=== PATIENT | female | born 1950 | race Caucasian/White ===

== ENCOUNTER 2019-11-27 13:00 | Inpatient (IN) ==
[2019-11-27] MEDS: ZOFRAN IV PRN ×2 (15:38→21:37)
[2019-11-27] MEDS: PROTONIX IV SCH (15:38)
[2019-11-27] MEDS: TORADOL IV PRN ×2 (15:38→21:37)
[2019-11-27] MEDS: SODIUM CHLORIDE 0.9% INJ SCH (15:38)
[2019-11-27] MEDS: NS 1,000 ML IV SCH (15:38)
[2019-11-27 16:08] LABS: BASO# 0.02 X1000 (0.0-0.2); BASO% 0.2 % (0.0-0.8); EOS# 0.02 X1000 (0.0-0.7); EOS% 0.2 % (0.0-10.0); HEMATOCRIT 46.7 % (37.0-47.0); HEMOGLOBIN 15.7 g/dL (12.0-16.0); IMM GRAN# 0.03 X1000 (0.0-0.04); IMM GRAN% 0.3 % (0.0-0.5); LYMPH# 1.53 X1000 (1.2-3.4); LYMPH% 17.2 % (20.5-51.1); MCH 28.2 PG (27-31); MCHC 33.6 g/dL (33-37); MCV 83.8 FL (81-99); MONO# 0.68 X1000 (0.11-0.59); MONO% 7.6 % (1.7-9.3); MPV 10.8 FL (7.4-10.4); NEUT# 6.62 X1000 (1.4-6.5); NEUT% 74.5 % (42.2-75.2); PLT 187 X1000 (130-400); RBC 5.57 XMIL (4.2-5.4); RDW 14.5 % (11.5-14.5)
[2019-11-27 16:25] LABS: AGAP 19; ALB/GLOB RATIO 1.5; ALBUMIN 4.2 g/dL (3.5-5.0); ALKALINE PHOSPHATASE 113 U/L (32-104); AMYLASE 32 U/L (20-200); BUN 21 mg/dL (8-22); CALCIUM 9.2 mg/dL (8.8-10.2); CHLORIDE 93 mmol/L (98-107); COSMO 275; CREATININE 0.8 mg/dL (0.5-0.9); ESTIMATED GFR > 60; GLUCOSE 103 mg/dL (70-104); GOT 25 U/L (10-30); GPT 33 U/L (10-36); POTASSIUM 4.1 mmol/L (3.5-5.1); SODIUM 136 mmol/L (136-145); TCO2 24 mmol/L (25-35); TOTAL BILIRUBIN 0.94 mg/dL (0.20-1.00)
--- NOTE | 2019-11-27 16:43 | HISTORY AND PHYSICAL ---
CHIEF COMPLAINT: Abdominal pain, nausea, and vomiting. HISTORY OF PRESENT ILLNESS: She is a 69-year-old white female who came to our clinic with a 5-day history of nausea, vomiting, abdominal pain, and diarrhea. Initially, diarrhea started, and that has been stopped 3 days ago after Imodium. Since then, she has gradual worsening of the symptoms, and not able to eat, nausea. No fever. She is not even passing the gas. Last bowel movement 3 days ago. Upon workup in the clinic, the patient has bowel obstruction. Normal chest. No free air in the diaphragm. There is a distended small bowel. No gas in the rectum. The patient was admitted to the hospital for bowel obstruction. PAST MEDICAL HISTORY: 1. Acid reflux disease. 2. Allergies. 3. Depression. PAST SURGICAL HISTORY: Cholecystectomy, appendectomy, and hysterectomy. ALLERGIES: Reported to penicillin, Augmentin, and bee stings. SOCIAL HISTORY: She is single, self-employed, , 2 children. The daughter used to work in [employer]. Lives in [place]. No smoking. No alcohol. FAMILY HISTORY: Mom of GI malignancy at the age of 36. Father history was not known. The patient was not up-to-date on flu vaccine. Colonoscopy 3 to [address] Barnard. Mammography was 2019. REVIEW OF SYSTEMS: HEENT: Allergies, some cough and ears are stopped up. No sore throat. No vision problem. No headache. Neck: No neck pain. No goiter. No lymphadenopathy. Cardiopulmonary: No chest pain, shortness of breath, PND, orthopnea. GI: No nausea, vomiting, abdominal distention, or obstipation. No bleeding per rectum. : No history of hesitancy, frequency, dysuria. No swelling of legs. No joint pain. Neurologic: No focal symptoms or weakness. PHYSICAL EXAMINATION: VITAL SIGNS: Temperature is 97.6 degrees, pulse 70, blood pressure 125/68, and 5 feet 3 inches, and 140 pounds. HEENT: Atraumatic, normocephalic. Pupils equal, and reactive to light. TMs are normal. Nose and throat within normal limits. Dry mucous membranes. NECK: Supple. No lymphadenopathy. CHEST: Bilateral air entry. HEART: Sounds are regular. ABDOMEN: Belly is soft. Distended. Hypoactive bowel sounds. RECTAL: Deferred. EXTREMITIES: No peripheral edema or cyanosis. NEUROLOGIC: No obvious neurological deficits. INVESTIGATIONS: CBC is normal. SMA 12. Amylase pending. Flat/Upright abdomen with chest. Bowel obstruction. ASSESSMENT AND PLAN: 1. A 69-year-old white female admitted to the hospital with bowel obstruction and conservative management. Follow up on the pending labs and IV fluids. 2. Dulcolax and Zofran for nausea, IV Protonix. 3. Toradol for pain. 4. Based on the CT, further recommendations will be followed. cc: Cristhian Rudd MD MTDD
[2019-11-27 19:07] LABS: URINE SOURCE CLEAN CATCH
[2019-11-27 19:41] LABS: BILIRUBIN URINE SMALL (NEGATIVE); BLOOD URINE TRACE (NEGATIVE); COLOR YELLOW; GLUCOSE URINE NEGATIVE (NEGATIVE); KETONE URINE 60 mg/dL (NEGATIVE); LEUKOCYTES URINE LARGE (NEGATIVE); NITRITE URINE NEGATIVE (NEGATIVE); PROTEIN URINE 50 mg/dL (NEGATIVE); SP GRAVITY URINE 1.035; TURBIDITY URINE HAZY (CLEAR); UR EPITHELIAL CELLS <10 /HPF (<10); URINE BACTERIA 2+ /HPF; URINE RBC <10 /HPF (<10); URINE WBC TNTC /HPF (<10); UROBILINOGEN URINE 3 mg/dL (NORMAL)
[2019-11-27 19:54] LABS: URINE CASTS NONE SEEN; URINE YEAST NONE SEEN
[2019-11-27 19:56] LABS: URINE CRYSTALS NONE SEEN
--- NOTE | 2019-11-27 20:17 | Diag Imaging Result Doc PS360 ---
EXAM: CT ABD/PELVIS W/IV CONT ONLY 11/27/2019 HISTORY: Abdominal pain TECHNIQUE: This exam was performed using automated exposure control, adjustment of mA or kV according to patient size, and/or use of iterative reconstruction technique. COMMENT: There are no previous studies available for comparison. There is linear opacity in the inferior lingula and costophrenic sulcus of the left lower lobe laterally which may be due to atelectasis or fibrosis. There is a nodule present in the left lower lobe laterally measuring over 7 mm. This is not clearly calcified. The liver is hypodense suggesting fatty change. The aorta is partially calcified but not distended and the mesenteric and renal arteries are patent. There has been cholecystectomy. The stomach is markedly distended with fluid. There is fluid dilatation of the small bowel. The colon is not distended. There is a small amount of free fluid present in the right paracolic gutter. The pancreas adrenal glands and spleen are unremarkable. The kidneys are without evidence of hydronephrosis or mass. There are some prominent mesenteric nodes. Pelvis: There is an apparent mesh in the lower abdomen and upper pelvis anteriorly on the right. There has been previous appendectomy. There has been hysterectomy. The distal small bowel is nondistended. The transitional point is apparently in the posterior pelvis adjacent to the rectum. The urinary bladder is not distended. There is a small amount of free fluid. There is no evidence of acute bony abnormality. IMPRESSION: Small bowel obstruction due to adhesion or stricture in the pelvis. Left lower lobe pulmonary nodule. Other nonacute findings as described above. Electronically signed by Bin Macedo 11/27/2019 8:15 PM
[2019-11-27] MEDS: DULCOLAX PO SCH (21:36)
[2019-11-28] MEDS: NS 1,000 ML IV SCH ×2 (03:37→22:24)
[2019-11-28] MEDS: TORADOL IV PRN ×2 (07:26→17:56)
[2019-11-28] MEDS: ZOFRAN IV PRN ×2 (11:22→21:13)
[2019-11-28] MEDS: LEVAQUIN 750 MG/D5W 750 MG/150 ML IVPB IV SCH (12:56)
--- NOTE | 2019-11-28 13:52 | GENERAL SURGERY CONSULTATION ---
DATE: 11/28/2019 SURGEON CONSULTED: Dr. Chao Pineda. REQUESTING PHYSICIAN: Dr. Rudd. REASON FOR CONSULTATION: Small bowel obstruction. HISTORY OF PRESENT ILLNESS: This is a 69-year-old female who has a 5-day history of abdominal pain diffusely, distention with nausea and vomiting and a brief episode of diarrhea. However, she has not had any passage of gas or bowel movements in over 24 hours. Her pain has not had any particular exacerbating factors but she has felt better overnight since she was admitted and given pain medicine and had a large emesis. The emesis was after the CT scan. She has never had any previous episodes like this in the past. PAST MEDICAL HISTORY: Acid reflux disease, allergies, depression. PAST SURGICAL HISTORY: Laparoscopic cholecystectomy, open appendectomy, hysterectomy, incisional hernia repair. ALLERGIES: Penicillin, Augmentin, and bee stings. SOCIAL HISTORY: Negative for tobacco. She has a glass of wine occasionally. She has 2 children. She is single. No illicit drug use. FAMILY HISTORY: Her mother of what sounds like esophageal or gastric cancer. HOME MEDICATIONS: Zoloft, Singulair, and cetirizine. REVIEW OF SYSTEMS: Ten systems reviewed and negative except as noted above. PHYSICAL EXAMINATION: Vital Signs: Temperature 98.3 degrees, pulse 81, respirations 16, blood pressure 127/68, O2 saturation 97%. General: Well-developed, well-nourished female who looks her stated age in no acute distress. HEENT: Normocephalic, atraumatic. Extraocular muscles intact. Pupils equal, round, reactive to light. Sclerae anicteric. Moist mucous membranes. Neck: Supple. No thyromegaly. CV: Regular rate and rhythm. Respiratory: Clear, bilateral breath sounds. No work of breathing. Gastrointestinal: Soft, nondistended. Hypoactive bowel sounds. No organomegaly or mass. No hernias. Mild tenderness throughout. No rebound or guarding. Extremities: No clubbing, cyanosis, or edema. Skin: Warm and dry. No rash. Musculoskeletal: Moves all extremities equally and well. LABORATORY: CBC and complete metabolic profile reviewed and unremarkable. Urinalysis was notable for large leukocytes, too numerous to count white blood cells, however negative nitrite. IMAGING: CT of the abdomen, pelvis shows small bowel obstruction likely due to adhesion or stricture in the pelvis and a tiny left lower lobe nodule. There is no free air. There is a small amount of free fluid in the right pericolic gutter. ASSESSMENT AND PLAN: A 69-year-old female with small-bowel obstruction likely secondary to adhesions. She is symptomatically better this morning. We will keep her n.p.o. and get a small bowel followthrough and follow her progress. If she fails to improve in the next 24-48 hours she will need exploratory laparotomy. cc: MD Cristhian Moore MD
--- NOTE | 2019-11-28 14:04 | PROGRESS NOTE ---
DATE: 11/28/2019 SUBJECTIVE: Ms. Tidwell was earlier seen by Dr. Pineda. She still has some abdominal pain and distention, has not moved bowels and has not been passing any gas. Her vital signs are stable. Bowel sounds are present. She has a nodule in the left lower lobe of the lung. She has urinary tract infection. Urine culture is pending. We started IV Levaquin today. Her white count was 8.9, hemoglobin 15.7, hematocrit 46.7. Overall condition is otherwise stable. We will continue to watch her closely. cc: MD Cristhian Márquez MD
[2019-11-28] MEDS: PROTONIX IV SCH (17:56)
[2019-11-28] MEDS: SODIUM CHLORIDE 0.9% INJ SCH (17:57)
--- NOTE | 2019-11-28 20:34 | Diag Imaging Result Doc PS360 ---
EXAM: SMALL BOWEL SERIES ONLY 11/28/2019 HISTORY: sbo TECHNIQUE: Small bowel series, eight images COMMENT: Following administration of oral contrast, there is marked dilatation of the small bowel which is demonstrated into the pelvis on the eight hour image. The distal ileum is not demonstrated at this point and a further delayed images to be obtained in the morning. IMPRESSION: Small bowel obstruction with markedly delayed intestinal transit time. Electronically signed by Bin Macedo 11/28/2019 8:31 PM
[2019-11-28] MEDS: DULCOLAX PO SCH (21:13)
[2019-11-29] MEDS: TORADOL IV PRN (01:48)
[2019-11-29] MEDS: ZOFRAN IV PRN ×2 (01:49→19:52)
--- NOTE | 2019-11-29 07:23 | Diag Imaging Result Doc PS360 ---
EXAM: KUB ABDOMEN 11/29/2019 HISTORY: complete SBO TECHNIQUE: KUB COMMENT: There continues to be dilatation of the visualized small bowel which contains dilute contrast. There is still no opacification of the colon at 20 hours after the beginning of the small bowel series yesterday. There may be some progress however since the last image on 11/28/2019 which was performed at eight hours at 2006. IMPRESSION: Small bowel obstruction. Electronically signed by Bin Macedo 11/29/2019 7:21 AM
--- NOTE | 2019-11-29 10:19 | GENERAL SURGERY PROGRESS NOTE ---
DATE: 11/29/2019 SUBJECTIVE: She still denies any significant abdominal pain. It is a little sore. She denies nausea or vomiting. She still has not had any flatus or bowel movement. OBJECTIVE: Vital signs: She is afebrile. Vital signs are stable. General: She is awake, alert, and oriented x3. She is in no acute distress. GI: Soft. Mildly distended. Hypoactive bowel sounds. Minimally tender. LABORATORY: None today. IMAGING STUDIES: Her abdominal x-ray and small bowel follow-through yesterday continue to show small bowel obstruction. There is no progression of the contrast into the colon. The small bowel remains dilated. ASSESSMENT AND PLAN: This is a 69-year-old female with small-bowel obstruction. This has not resolved. Symptomatically she has improved. We will give her a few more hours to see if she has any bowel function or passage of contrast into the colon on x-ray. If by mid day, this has not occurred, we are planning exploratory laparotomy today. I have discussed this with her to include the risks and benefits such as bleeding, infection, injury to the bowel, incisional hernia, and other imponderables. She understands and agrees to proceed if necessary. cc: MD Cristhian Moore MD
--- NOTE | 2019-11-29 11:12 | Diag Imaging Result Doc PS360 ---
EXAM: KUB ABDOMEN 11/29/2019 HISTORY: sbo TECHNIQUE: KUB COMMENT: The current examination is 24 hours out from the administration of oral contrast. There is still no opacification of the colon. The small bowel is still considerably distended. IMPRESSION: Small bowel obstruction. Electronically signed by Bin Macedo 11/29/2019 11:10 AM
[2019-11-29] MEDS: LEVAQUIN 750 MG/D5W 750 MG/150 ML IVPB IV SCH (12:42)
[2019-11-29] MEDS: NS 1,000 ML IV SCH (12:42)
--- NOTE | 2019-11-29 13:04 | PROGRESS NOTE ---
DATE: 11/29/2019 Ms. Tidwell is in about the same general condition. She has not moved her bowels or has not passed any gas. She does not have any abdominal pain. Her lungs are clear. Bowel sounds are less prominent today. There is not much abdominal distention. Flat plate abdomen reveals the presence of small-bowel obstruction. Her urine culture grew diphtheroids. Her general condition is stable. She was seen by Dr. Pineda earlier, and he wanted to watch her for a few more hours to see if there was any progress made. So far, she has not moved her bowels and not passed any gas. cc: MD Cristhian Márquez MD
[2019-11-29] MEDS ORDERED: FENTANYL ONE (13:18)
[2019-11-29] MEDS ORDERED: VERSED ONE (13:18)
[2019-11-29] MEDS ORDERED: DIPRIVAN 1% ONE ×2 (13:18→14:04)
[2019-11-29] MEDS ORDERED: LR 1,000 ML ONE (13:29)
[2019-11-29] MEDS ORDERED: SENSORCAINE 0.5%-EPI 1:200,000 ONE (13:29)
[2019-11-29] MEDS ORDERED: NEOSTIGMINE ONE (14:19)
[2019-11-29] MEDS ORDERED: ROBINUL ONE (14:19)
[2019-11-29 14:37] LABS: URINE SOURCE CATH
[2019-11-29 14:45] LABS: BILIRUBIN URINE SMALL (NEGATIVE); BLOOD URINE NEGATIVE (NEGATIVE); COLOR YELLOW; GLUCOSE URINE NEGATIVE (NEGATIVE); KETONE URINE 150 mg/dL (NEGATIVE); LEUKOCYTES URINE NEGATIVE (NEGATIVE); NITRITE URINE NEGATIVE (NEGATIVE); PROTEIN URINE 50 mg/dL (NEGATIVE); SP GRAVITY URINE 1.042; TURBIDITY URINE CLEAR (CLEAR); UROBILINOGEN URINE 3 mg/dL (NORMAL)
[2019-11-29 14:47] LABS: UR EPITHELIAL CELLS >10 /HPF (<10); URINE BACTERIA NEGATIVE /HPF; URINE RBC <10 /HPF (<10); URINE WBC <10 /HPF (<10)
--- NOTE | 2019-11-29 15:04 | OPERATIVE NOTE ---
PROCEDURE DATE: 11/29/2019 PREOPERATIVE DIAGNOSIS: Small-bowel obstruction. POSTOPERATIVE DIAGNOSIS: Small-bowel obstruction. PROCEDURE PERFORMED: Diagnostic laparoscopy with lysis of adhesions. SURGEON: Chao Pineda M.D. ANESTHESIA: General. BLOOD LOSS: 3 mL. COMPLICATIONS: None apparent. SPECIMENS: None. FINDINGS: There were several adhesions in the pelvis causing obstruction of the small bowel. TECHNIQUE: She was brought to the operating room and placed supine on the table. General anesthesia was induced. A Park catheter was placed, as well as an NG tube. She was prepped and draped in the usual sterile fashion. Then, 0.25% Marcaine with epinephrine was used to anesthetize our incisions. An 11 mm incision was made above the umbilicus. The fascia was exposed and incised sharply. Entry into the peritoneal cavity was obtained under direct vision with the Nutrino device. Pneumoperitoneum was established. The camera was inserted. There was no evidence of injury to underlying structures. Two 5 mm incision ports were placed under direct vision in the left lower and mid abdomen. Through these incisions, I was able to take down adhesions of the omentum to the anterior abdominal wall, and then using padded graspers, I began mobilizing the small bowel out of the pelvis, and identified two adhesive areas that were causing obstruction. These adhesions were lysed with scissors. Once this was accomplished, I then ran the small bowel from the terminal ileum to the ligament of Treitz without any evidence of any further lesions. The bowel appeared to be viable without any significant ischemia. We then desufflated the abdomen, and removed the ports. The umbilical fascia was closed with a figure-of- eight 0 Vicryl. The skin was closed with 4-0 subcuticular Biosyn and Steri-Strips. There were no apparent complications. She was awakened in stable condition, and transferred to the recovery room. cc: MD Cristhian Moore MD
[2019-11-29] MEDS ORDERED: MORPHINE ONE (15:31)
[2019-11-29] MEDS: PROTONIX IV SCH (17:37)
[2019-11-29] MEDS: MORPHINE IV PRN (19:52)
[2019-11-30] MEDS: MORPHINE IV PRN ×4 (04:15→14:19)
[2019-11-30] MEDS: ZOFRAN IV PRN ×5 (04:15→18:24)
[2019-11-30] MEDS: NS 1,000 ML IV SCH ×3 (04:16→14:17)
[2019-11-30 07:33] LABS: BASO# 0.01 X1000 (0.0-0.2); BASO% 0.2 % (0.0-0.8); EOS# 0.03 X1000 (0.0-0.7); EOS% 0.7 % (0.0-10.0); HEMATOCRIT 38.4 % (37.0-47.0); HEMOGLOBIN 12.9 g/dL (12.0-16.0); LYMPH# 1.06 X1000 (1.2-3.4); LYMPH% 24.9 % (20.5-51.1); MCH 28.9 PG (27-31); MCHC 33.6 g/dL (33-37); MCV 85.9 FL (81-99); MONO# 0.46 X1000 (0.11-0.59); MONO% 10.8 % (1.7-9.3); MPV 10.4 FL (7.4-10.4); NEUT% 63.4 % (42.2-75.2); PLT 149 X1000 (130-400); RBC 4.47 XMIL (4.2-5.4); RDW 14.2 % (11.5-14.5); WBC 4.26 X1000 (4.8-10.8)
[2019-11-30 08:13] LABS: AGAP 15; BUN 17 mg/dL (8-22); CHLORIDE 110 mmol/L (98-107); COSMO 289; CREATININE 0.5 mg/dL (0.5-0.9); ESTIMATED GFR > 60; GLUCOSE 80 mg/dL (70-104); POTASSIUM 3.6 mmol/L (3.5-5.1); SODIUM 145 mmol/L (136-145); TCO2 20 mmol/L (25-35)
[2019-11-30] MEDS: SODIUM CHLORIDE 0.9% INJ SCH (14:18)
[2019-11-30] MEDS: PROTONIX IV SCH (14:18)
[2019-11-30] MEDS: LEVAQUIN 750 MG/D5W 750 MG/150 ML IVPB IV SCH (14:18)
[2019-11-30] MEDS: BENADRYL IV PRN (17:50)
[2019-12-01] MEDS: BENADRYL IV PRN (00:16)
[2019-12-01] MEDS: MORPHINE IV PRN ×3 (02:21→18:30)
--- NOTE | 2019-12-01 04:33 | PROGRESS NOTE ---
DATE: 11/30/2019 SUBJECTIVE: Interval history was reviewed. Appreciated Dr. Chao Pineda. The patient had a laparoscopic exam with lysis of adhesions. NG tube Park was placed. The patient is not passing gas yet. She is a little bit uncomfortable with NG tube. For allergies, IV Benadryl was given. PHYSICAL EXAMINATION: Vital Signs: Temperature 97.9 degrees and pulse 64. Vitals are stable. HEENT: Exam has NG tube. Chest: Clear. Heart: Sounds are regular. Abdomen: Belly is soft. Hyperactive bowel sounds. No neurological deficits. INVESTIGATIONS: CBC: White cell count 4.2, hematocrit 38, and platelets 149,000. Sodium 145, potassium 3.6, chloride 110, BUN 17, and creatinine 0.5. Urine culture showed diphtheroids. ASSESSMENT AND PLAN: 1. Small bowel obstruction due to medications. 2. Allergic rhinitis. 3. Diphtheroid UTI. PLAN OF CARE: 1. NG tube with low wall suction. 2. Continue IV fluids and Benadryl for allergies. 3. Continue IV Levaquin. 4. Gastrointestinal prophylaxis with IV Protonix and antithrombotic stockings. 5. Once she has good bowel sounds and passing gas, we will consider discontinuing Park and NG tube. 6. We will check the abdomen flat/upright x-ray in the morning. LEVEL OF DOCUMENTATION: 25 minutes. cc: Cristhian Rudd MD MTDD
[2019-12-01] MEDS: ZOFRAN IV PRN ×3 (04:59→18:29)
[2019-12-01] MEDS: NS 1,000 ML IV SCH ×2 (05:33→06:38)
--- NOTE | 2019-12-01 09:07 | Diag Imaging Result Doc PS360 ---
EXAM: ABDOMEN FLAT/UPRIGHT INDICATION: pain TECHNIQUE: 2 views COMPARISON: 11/29/2019 FINDINGS: There has been marked improvement of the small bowel distention seen on the previous study. There is now only mild gaseous distention of a few loops of small bowel. The contrast seen in the small bowel on the previous study is now all within the colon. The colon is nondistended. No large volume free abdominal gas is identified. An NG tube is identified projecting below the diaphragm. IMPRESSION: Marked improvement of small bowel distention. Electronically signed by Tomi Phelps 12/01/2019 9:05 AM
[2019-12-01] MEDS: LEVAQUIN 750 MG/D5W 750 MG/150 ML IVPB IV SCH (11:42)
--- NOTE | 2019-12-01 15:38 | GENERAL SURGERY PROGRESS NOTE ---
DATE: 11/30/2019 SUBJECTIVE: The patient reports soreness in her abdomen, but feels better overall. No flatus yet. OBJECTIVE: Vital Signs: She is afebrile. Vital signs are stable. Cardiovascular: Regular rate and rhythm. Respiratory: Clear breath sounds bilaterally. Gastrointestinal: Abdomen soft, appropriately tender. Incisional dressings clean and dry. General: She is awake, alert, oriented x3. LABORATORY: None today. ASSESSMENT AND PLAN: A 69-year-old female status post diagnostic laparoscopy with lysis of adhesions for bowel obstruction. We will continue the NG tube to suction and the Park catheter for volume monitoring. She is NPO. cc: MD Cristhian Moore MD
[2019-12-01] MEDS: PROTONIX IV SCH (15:44)
--- NOTE | 2019-12-01 22:03 | GENERAL SURGERY PROGRESS NOTE ---
DATE: 12/01/2019 SUBJECTIVE: The patient feels better. She is out of bed now. She denies nausea, vomiting. No flatus. No severe pain. OBJECTIVE: Vital signs: She is afebrile. Vital signs are stable. General: She is awake, alert, oriented x3. No acute distress. NG tube less than 500 mL today, about 1200 mL yesterday. GI: Soft. Hypoactive bowel sounds. Incision is clean, dry, and intact. Nondistended. Appropriately tender. IMAGING: Abdominal x-ray today shows significant improvement in small bowel distention. There is contrast in the colon now. ASSESSMENT AND PLAN: A 69-year-old female status post laparoscopic lysis of adhesions for small bowel obstruction. She is improving. We will clamp her nasogastric tube and remove it tonight if the residual is low. Can keep her n.p.o. otherwise though for now. cc: MD Cristhian Moore MD
--- NOTE | 2019-12-01 23:58 | PROGRESS NOTE ---
DATE: 12/01/2019 SUBJECTIVE: The patient is still not passing gas. Bowel sounds slightly improved. No other complaints. PHYSICAL EXAMINATION: Vital signs: Temperature is 98.6 degrees, pulse is 70. Vitals are stable. HEENT: Within normal limits. NG tube was placed. Chest: Clear. Heart: Sounds are regular. Abdomen: Belly is soft. Bowel sounds 2+. Neurologic: No neurological deficits. INVESTIGATIONS: None reported. KUB showed some improvement of gaseous distention. ASSESSMENT AND PLAN: 1. Small-bowel obstruction, postop day 2, status post lysis of adhesions. 2. Discontinue Park. 3. IV fluids. Continue IV antibiotics with localized redness around the laparoscopic site, around the umbilicus. 4. Gastrointestinal prophylaxis with IV Protonix and continue to monitor. LEVEL OF DOCUMENTATION: Was 25 minutes. cc: Cristhian Rudd MD
[2019-12-02] MEDS: ZOFRAN IV PRN ×3 (00:02→22:10)
[2019-12-02] MEDS: NS 1,000 ML IV SCH ×2 (06:01→12:20)
[2019-12-02] MEDS: LEVAQUIN 750 MG/D5W 750 MG/150 ML IVPB IV SCH (12:20)
[2019-12-02] MEDS: PROTONIX IV SCH (14:08)
[2019-12-02] MEDS: SODIUM CHLORIDE 0.9% INJ SCH (14:08)
[2019-12-02] MEDS: D5 1/2 NS + KCL 20 MEQ 1,000 ML IV SCH (14:08)
[2019-12-02] MEDS: BENADRYL IV PRN ×2 (14:23→22:10)
--- NOTE | 2019-12-02 19:15 | GENERAL SURGERY PROGRESS NOTE ---
DATE: 12/02/2019 SUBJECTIVE: The patient is feeling better. She has passed some gas. No nausea or vomiting. Her residual last night was 220 mL, so she still has an NG tube. OBJECTIVE: Vital signs: She is afebrile. Vital signs are stable. General: She is awake, alert, oriented x3. No acute distress. CV: Regular rate and rhythm. Respiratory: Bilateral equal breath sounds. Gastrointestinal: Soft, nondistended, appropriately tender. Incisional dressings clean and dry. She does have a few bowel sounds today. NG tube output recorded as 1050 mL yesterday. ASSESSMENT AND PLAN: A 69-year-old female status post diagnostic laparoscopy with lysis of adhesions. She is starting to improve. I have encouraged more time out of bed. We will do a nasogastric tube clamp trial again. She is getting close to having it removed. cc: MD Cristhian Moore MD
[2019-12-02] MEDS: TORADOL IV PRN (22:10)
--- NOTE | 2019-12-03 01:32 | PROGRESS NOTE ---
DATE: 12/02/2019 SUBJECTIVE: The patient is anxious, not able to pass significant gas. NG tube was taken out. Residual low. OBJECTIVE: Vital signs: Temperature is 97 degrees, pulse is 63. Vitals are stable. NG tube was taken out. Chest: Clear. Heart: Sounds are regular. Abdomen: Soft. Bowel sounds are hypoactive. INVESTIGATIONS: None. ASSESSMENT AND PLAN: 1. Small-bowel obstruction, postop arthroscopy with lysis of adhesions. 2. Discontinue Park. Discontinue nasogastric tube. 3. IV fluids. Discontinue morphine. Change to the Toradol. 4. Continue increase the ambulation. 5. Mild cellulitis over the umbilicus is improving on Levaquin. We will check the flat and upright of the abdomen and chest in the morning. Will follow up. LEVEL OF DOCUMENTATION: Was 25 minutes. cc: Cristhian Rudd MD MTDD
[2019-12-03] MEDS: D5 1/2 NS + KCL 20 MEQ 1,000 ML IV SCH ×2 (03:13→22:00)
[2019-12-03] MEDS: TORADOL IV PRN ×3 (03:13→21:52)
[2019-12-03] MEDS: ZOFRAN IV PRN ×3 (03:13→21:52)
[2019-12-03] MEDS: BENADRYL IV PRN ×3 (06:15→21:52)
--- NOTE | 2019-12-03 08:02 | Diag Imaging Result Doc PS360 ---
EXAM: ABDOMEN FLAT/UPRIGHT HISTORY: pain TECHNIQUE: Two views COMPARISON: None. FINDINGS: No free air beneath the diaphragm. The gallbladder has been removed. There is contrast within a nondistended colon. The colonic diverticula. There continue to be air distended loops of small bowel with air-fluid levels. Small bowel loops measure over 4 cm in diameter. IMPRESSION: Persistent, at least partial, small bowel obstruction. Electronically signed by Shamir Cormier 12/03/2019 7:59 AM
[2019-12-03] MEDS: LEVAQUIN 750 MG/D5W 750 MG/150 ML IVPB IV SCH (11:42)
[2019-12-03] MEDS: PROTONIX IV SCH (14:21)
[2019-12-03] MEDS: SODIUM CHLORIDE 0.9% INJ SCH (14:21)
--- NOTE | 2019-12-03 22:25 | GENERAL SURGERY PROGRESS NOTE ---
DATE: 12/03/2019 SUBJECTIVE: The patient overall feels better. No severe pain. She has had a couple episodes of emesis, but she thinks it is more due to postnasal drip. She has tolerated some liquids today. She has passed multiple episodes of flatus and a small bowel movement. OBJECTIVE: She is afebrile. Vital signs are stable.General: She is awake, alert, no acute distress. GI: Soft nondistended. Minimally tender. Bowel sounds are quiet. LABORATORY: White cell count 4, hemoglobin 12.9. Electrolytes reviewed and unremarkable. ASSESSMENT AND PLAN: A 69-year-old female status post laparoscopic lysis of adhesions for small bowel obstruction. She is slowly recovering. I have encouraged more time out of bed. We will keep her on a liquid diet and KVO her IV. cc: MD Cristhian Moore MD
--- NOTE | 2019-12-04 00:27 | PROGRESS NOTE ---
DATE: 12/03/2019 SUBJECTIVE: The patient had one episode of vomiting, passing gas a little bit Complains of allergies. PHYSICAL EXAMINATION: Temperature is 97 degrees. Vitals are stable. HEENT: Within normal limits. Neck: Supple. Chest: Clear to auscultation. Heart sounds are regular. Belly is soft, nontender. Good bowel sounds. No neurological deficits. ASSESSMENT: 1. Small bowel obstruction status post laparoscopic, lysis of adhesions. 2. Continue showing some ileus and NG tube is out, on IV fluids and Toradol. PLAN: We will repeat the x-rays in the morning. Continue on IV antibiotics and also GI prophylaxis with Protonix and Zofran for nausea. If she is tolerating the diet very well and without any nausea, based on x-ray, we will discharge in the morning. Will follow up. Continue on incentive spirometry. LEVEL OF DOCUMENTATION: 25 minutes. cc: Cristhian Rudd MD MTDD
--- NOTE | 2019-12-04 11:21 | Diag Imaging Result Doc PS360 ---
EXAM: ABDOMEN FLAT/UPRIGHT 12/04/2019 HISTORY: ileus TECHNIQUE: Flat and upright abdomen COMMENT: There are multiple distended loops of small bowel with air-fluid levels in the right abdomen. There is retained barium within the colon. Compared to 12/03/2019 the appearance of the abdomen has not changed significantly. The stomach is not distended. There is no evidence of organomegaly or mass. IMPRESSION: Retained barium from small bowel series on 11/28/2019. Dilatation of small bowel has improved since that time but has not changed significantly compared to 12/03/2019. There is still likely partial small bowel obstruction. Electronically signed by Bin Macedo 12/04/2019 11:19 AM
[2019-12-04 12:10] VITALS: BP 118/56
--- NOTE | 2019-12-04 14:52 | GENERAL SURGERY PROGRESS NOTE ---
DATE: 12/04/2019 SUBJECTIVE: The patient is doing well. No nausea or vomiting. She is tolerating a liquid diet. She is passing gas. OBJECTIVE: She is afebrile. Vital signs are stable.General: She is awake, alert, oriented x3. No acute distress. Gastrointestinal: Soft, nondistended. She has a few more bowel sounds today. Incisional dressings clean and dry. She has minimal tenderness. LABORATORY: None today. ASSESSMENT AND PLAN: A 69-year-old female status post laparoscopic lysis of adhesions for bowel obstruction. She is making progress. We will order her a soft diet and if she tolerates this then I think she could be discharged this afternoon. cc: MD Cristhian Moore MD
--- NOTE | 2019-12-04 19:05 | GENERAL SURGERY PROGRESS NOTE ---
DATE: 12/04/2019 SUBJECTIVE: The patient is doing well. She denies severe pain, nausea or vomiting. She is passing gas. She has had a small bowel movement. She is tolerating a liquid diet. OBJECTIVE: Vital signs: She is afebrile. Vital signs are stable. General: She is awake, alert, oriented x3. No acute distress. Gastrointestinal: Soft, nontender, nondistended. Incisions clean, dry, intact. She has a few more bowel sounds noticeable today. LABORATORY: None today. IMAGING: Abdominal x-ray was performed and shows improvement overall of the small-bowel dilation. There is retained barium in the colon. ASSESSMENT AND PLAN: A 69-year-old female status post laparoscopic lysis of adhesions. She is making slow improvement. We will start her on a diet today. If she tolerates that, then I think she can be discharged home. cc: MD Cristhian Moore MD
--- NOTE | 2019-12-05 23:41 | DISCHARGE SUMMARY ---
ADMISSION DATE: 11/27/2019 DISCHARGE DATE: 12/04/2019 DISCHARGING DIAGNOSIS: Intractable abdominal pain nausea vomiting due to small- bowel obstruction due to adhesions. SECONDARY DIAGNOSES: 1. Acid reflux disease. 2. Chronic allergies. 3. Depression. CONSULTS: Dr. Chao Pineda. PROCEDURE: Laparoscopic lysis of adhesions. BRIEF HISTORY: Please see the H P that was done on 11/27/2019. In brief, she is a 69-year-old white female, was seen in our clinic with a 5-day history of nausea, vomiting. her daughter was the nurse working for the hospital before. The patient was found to have bowel obstruction on flattened/upper abdomen with chest. She was admitted to the hospital directly for impending dehydration. HOSPITAL COURSE: Initially, she was treated with IV fluids, Zofran and Dulcolax, and conservative management. Toradol was given for pain control. The patient fails to improve with conservative management. As a result, surgical consult was obtained. The patient had a laparoscopy, lysis of adhesions based on the CT findings. Postoperative course she has exhibiting still ileus at the time of discharge. However, she is able to pass the gas and [address] Pineda discharged the patient in stable condition. LABORATORY DATA FOLLOWS: CBC: White cell count 4.2, hematocrit 38.4, platelet count 149,000. Sodium 145, potassium 3.6, chloride 110, BUN 17, creatinine 0.5, calcium 8. LFTs were normal. Urine cultures show diphtheroids. CT scan of the abdomen and pelvis, small bowel obstruction due to adhesion or stricture in the pelvis, left lower lobe nodule measuring 7 mm, noncalcified. Small bowel follow-through small bowel obstruction. The patient continues to have allergies during this hospital course. She also had mild redness at the incision site from the umbilicus during laparoscopy procedure. She was given IV Levaquin. DISCHARGE INSTRUCTIONS: 1. Pneumococcal vaccine was given 08/25/2018. 2. Continue home medicines. Zoloft 100 daily, Singulair 10 daily, cetirizine 10 daily, and Zofran for nausea and follow up with Dr. Pineda and have a nurse practitioner. 3. If the symptoms do not get better, return to the emergency room. cc: MD Chao Brown MD [facility]
== END 2019-12-04 13:22 | disposition home or self-care (01) | DRG 336 ==
LOC: DIRADM 13:00 → 4N 14:10
PROVIDERS: ADMIT Internal Medicine; ATTEND Internal Medicine